=== PATIENT | male | born 1950 | race Asian ===

== ENCOUNTER 2017-05-27 19:45 | Emergency (ER) | payer MEDICARE ==
[~2017-05-27] VITALS: Ht 167.6 cm; Wt 72.6 kg
[2017-05-27] MEDS ORDERED: SODIUM CHLORIDE 0.9% 1000ML 1,000 ML IV SCH (21:00)
[2017-05-27 23:52] VITALS: BP 125/72
== END 2017-05-27 22:10 | disposition home or self-care (01) ==
LOC: FSED 19:45
DX: R50.9 Fever, unspecified (principal)
CPT/HCPCS: 71046; 74177; 80053; 81003; 85025; 87400; 93005; 96360; 99284; J7030